=== PATIENT | female | born 1985 | race African-American/Black ===

== ENCOUNTER 2018-12-31 12:14 | Emergency (ER) | payer OTHER ==
[~2018-12-31] VITALS: Ht 167.6 cm; Wt 86.2 kg
--- OUTSIDE RECORDS SUMMARY | 2018-12-31 12:19 | XMS REPORT | Clinical Summary ---
Author Author [facility] Address Unknown Phone Unavailable Care Team Providers Care Manager Field Sales Name Role Phone Sharpless PCP Allergies Comments Active Allergy Reactions Severity Noted Date Sulfamethoxazole-Trimetho Rash Low 11/30/2017 prim Medications Not on file Active Problems Not on file Social History Date Tobacco Use Types Packs/Day Years Used Current Every Day Smoker Smokeless Tobacco: Never Used Alcohol Use Drinks/Week oz/Week Comments Yes Sex Assigned at Date Recorded Not on file Industry Job Start Date Occupation Not on file Not on file Not on file Travel End Travel History Travel Start No recent travel history available. Last Filed Vital Signs Not on file Plan of Treatment Not on file Results Not on fileafter 12/30/2017 Insurance Payer Benefit Subscriber ID Type Phone Address Plan / Group MEDICARE MEDICARE A xxxxxxxxxx Medicare B MEDICAID - MEDICAID MGD [facility] xxxxxxxxx Medicaid CARE [facility] [employer] Contracted PLAN (Home) [place] [address]
--- OUTSIDE RECORDS SUMMARY | 2018-12-31 12:19 | XMS REPORT | Clinical Summary ---
Author Author [facility] Address Unknown Phone Unavailable Care Team Providers Care Nailhead Operator Name Role Phone Asked, No Pcp PCP Unavailable Allergies Comments Active Allergy Reactions Severity Noted Date Sulfamethoxazole-Trimetho 03/23/2016 prim Medications End Date Status Medication Sig Dispensed Refills Start Date Active abacavir-lamivudine Take 1 tablet 0 (EPZICOM) 600-300 mg per by mouth tablet daily. Active atazanavir-cobicistat Take by mouth 0 (EVOTAZ) 300-150 mg daily. tablet Active medroxyPROGESTERone Inject 150 mg 0 (DEPO-PROVERA) 150 mg/mL into the injection shoulder, thigh, or buttocks every 3 (three) months. Active Problems Problem Noted Date Pain in upper limb, Left 03/24/2016 Close fracture proximal humerus, greater tuberosity, Left 03/24/2016 Closed fracture of shaft of humerus, Left 03/24/2016 Nondisplaced fracture of greater tuberosity of left humerus with routine 03/23/2016 healing Family History Medical History Relation Name Comments No Known Problems Father Cancer Mother Relation Name Status Comments Father Mother Social History Date Tobacco Use Types Packs/Day Years Used Current Every Day Smoker Smokeless Tobacco: Current User Sex Assigned at Date Recorded Not on file Industry Job Start Date Occupation Not on file Not on file Not on file Travel End Travel History Travel Start No recent travel history available. Last Filed Vital Signs Not on file Plan of Treatment Health Maintenance Due Date Last Done Comments CERVICAL CANCER SCREENING 2005 INFLUENZA VACCINE 04/05/2019 Results Not on fileafter 12/30/2017 Insurance Payer Benefit Subscriber ID Type Phone Address Plan / Group MEDICARE MEDICARE xxxxxxxxxx Medicare [place], [place] PART A [place] B MEDICAID MEDICAID xxxxxxxxx Medicaid Advance Directives Patient has advance care planning documents on file. For more information, kaveh e contact: Loco Mcguire [address] [place] [address]
--- OUTSIDE RECORDS SUMMARY | 2018-12-31 12:19 | XMS REPORT ---
Author Author [facility] Address Unknown Phone Unavailable Care Team Providers Care Nurse Case Manager Name Role Phone LANDON C[place] Unavailable Unavailable Problems This patient has no known problems. Allergies, Adverse Reactions, Alerts This patient has no known allergies or adverse reactions. Medications This patient has no known medications. Results Test Description Test Time Test Comments Text Results Atomic Results Result Comments URINALYSIS W/ MICROSCOPIC 2017-11-30 10:18:00 COLOR (BEAKER) (test hnfk=214) Yellow CLARITY (BEAKER) (test xskc=815) Slightly Cloudy SPECIFIC GRAVITY UA (BEAKER) (test hwjq=690) 1.020 1.001-1.035 PH UA (BEAKER) (test pmcg=909) 5.5 5.0-8.0 PROTEIN UA (BEAKER) (test ucbm=058) Negative Negative GLUCOSE UA (BEAKER) (test jqkl=755) Negative Negative KETONES UA (BEAKER) (test rklo=847) Negative Negative BILIRUBIN UA (BEAKER) (test juma=730) Negative Negative BLOOD UA (BEAKER) (test rjkw=262) Moderate Negative NITRITE UA (BEAKER) (test tahn=539) Negative Negative LEUKOCYTE ESTERASE UA (BEAKER) (test remc=063) Trace Negative UROBILINOGEN UA (BEAKER) (test rxtk=153) 0.2 mg/dL 0.2-1.0 BACTERIA (BEAKER) (test fapq=800) Moderate MUCUS (BEAKER) (test zjse=1934) Moderate RBC UA-MANUAL (BEAKER) (test rtfk=6183) 10-20 /HPF WBC UA-MANUAL (BEAKER) (test flnq=2555) <5 /HPF SQUAMOUS EPITHELIAL MANUAL (BEAKER) (test snpy=0423) 5-10 /HPF SOURCE(BEAKER) (test fdfe=4304) SCREEN, [id number] 10:08:00* Test Item Value Reference Range Comments TEST URINE (BEAKER) (test cpxf=953) Negative
[2018-12-31] MEDS ORDERED: TETANUS/DIPHTHERIA TOX ADULT 0.5 ML SYR IM STA (12:44)
[2018-12-31] MEDS ORDERED: BACITRACIN ZINC 0.9GM TP ONE (13:00)
--- NOTE | 2018-12-31 13:09 | Diagnostic Imaging Report ---
Exam: Right Hand Series. History: Fingers hurt Comparison: None. Findings: 3 views of the right hand. There is normal bone mineralization. Acute, nondisplaced intra-articular fracture at the base of the fifth finger distal phalanx. Other bony structures are intact. The joint spaces are normal. No abnormal soft tissue calcification or mass. No cystic erosive changes.Mild soft tissue swelling in the fifth finger. Impression: 1. Acute, nondisplaced intra-articular fracture at the base of the fifth finger distal phalanx. Signed by: Dr. Domo Hubbard M.D. on 12/31/2018 1:06 PM
[2018-12-31] MEDS ORDERED: IBUPROFEN 400 MG TAB PO ONE (13:30)
== END 2018-12-31 13:42 | disposition home or self-care (01) ==
LOC: FSED 12:14
DX: S62.356A Nondisplaced fracture of shaft of fifth metacarpal bone, right hand, initial encounter for closed fracture (principal); S62.666A Nondisplaced fracture of distal phalanx of right little finger, initial encounter for closed fracture; S62.656A Nondisplaced fracture of middle phalanx of right little finger, initial encounter for closed fracture; S01.412A Laceration without foreign body of left cheek and temporomandibular area, initial encounter; Y04.0XXA Assault by unarmed brawl or fight, initial encounter; B20 Human immunodeficiency virus [HIV] disease
CPT/HCPCS: 90714; 99284

== ENCOUNTER 2020-07-15 19:42 | Emergency (ER) | payer MEDICARE, OTHER ==
[~2020-07-15] VITALS: Ht 172.7 cm; Wt 72.6 kg
[2020-07-15] MEDS ORDERED: CEFDINIR300 MG PO (22:04)
[2020-07-15] MEDS ORDERED: PROAIR HFA INH8.5 GM INH (22:06)
[2020-07-15 22:20] VITALS: BP 115/73
== END 2020-07-15 22:22 | disposition home or self-care (01) ==
LOC: FSED 19:51
DX: J20.9 Acute bronchitis, unspecified (principal); N39.0 Urinary tract infection, site not specified; R05 Cough; D72.829 Elevated white blood cell count, unspecified; B20 Human immunodeficiency virus [HIV] disease; F17.210 Nicotine dependence, cigarettes, uncomplicated
CPT/HCPCS: 71046; 80053; 81003; 85025; 87400; 99284

== ENCOUNTER 2020-09-09 18:36 | Emergency (ER) | payer MEDICARE, OTHER ==
[~2020-09-09 18:36] MED LIST: CEFDINIR300 MG PO; PROAIR HFA INH8.5 GM INH
== END 2020-09-09 19:00 | disposition short-term general hospital (02) ==
LOC: FSED 19:00
DX: R69 Illness, unspecified (principal)

== ENCOUNTER 2020-10-30 21:27 | Emergency (ER) | payer MEDICARE, OTHER ==
[~2020-10-30] VITALS: Ht 170.2 cm; Wt 68.0 kg
[2020-10-30] MEDS ORDERED: CLINDAMYCIN PHOS 600 MG/ 4 ML VIAL IM STA (22:03)
[2020-10-30] MEDS ORDERED: BUPIVACAINE HCL 0.5% INJ 30 ML VIAL INJ ONE (22:15)
[2020-10-30] MEDS ORDERED: PREDNISONE 20 MG TAB PO ONE (22:15)
[2020-10-30] MEDS ORDERED: LIDOCAINE HCL 2% LOCAL 20 ML VIAL ONE (22:21)
[2020-10-30] MEDS ORDERED: PREDNISONE 20 MG TAB ONE (22:22)
[2020-10-30] MEDS ORDERED: CLINDAMYCIN PHOS 600 MG/ 4 ML VIAL ONE (22:22)
[2020-10-30] MEDS ORDERED: LIDOCAINE HCL 1% LOCAL INJ 20 ML VIAL INJ ONE (22:30)
[2020-10-30] MEDS ORDERED: CLINDAMYCIN HC300 MG PO (23:10)
[2020-10-30] MEDS ORDERED: IBUPROFEN600 MG PO (23:10)
[2020-10-30] MEDS ORDERED: DOXYCYCLINE HY100 M3 PO (23:10)
[2020-10-30] MEDS ORDERED: BACITRACIN ZINC 15 GM OINT TOP STA (23:22)
[2020-10-30 23:30] VITALS: BP 116/70
== END 2020-10-30 23:30 | disposition home or self-care (01) ==
LOC: FSED 22:00
DX: L03.011 Cellulitis of right finger (principal); M79.644 Pain in right finger(s); B20 Human immunodeficiency virus [HIV] disease; F17.210 Nicotine dependence, cigarettes, uncomplicated
CPT/HCPCS: 10060; 73140; 99283; J2001; J7512

== ENCOUNTER 2022-05-10 20:03 | Emergency (ER) | payer MEDICARE ==
[~2022-05-10] VITALS: Ht 170.2 cm; Wt 68.0 kg
[~2022-05-10 20:03] MED LIST changes: +CLINDAMYCIN HC300 MG PO; +DOXYCYCLINE HY100 M3 PO; +IBUPROFEN600 MG PO
[2022-05-10] MEDS ORDERED: CEFTRIAXONE 1 GM VIAL IM ONE (20:30)
[2022-05-10] MEDS ORDERED: IBUPROFEN 200 MG TAB PO ONE (20:30)
[2022-05-10] MEDS ORDERED: CEFDINIR300 MG PO (20:34)
[2022-05-10] MEDS ORDERED: IBUPROFEN200 MG PO (20:34)
[2022-05-10] MEDS ORDERED: IBUPROFEN 600 MG TAB ONE (20:43)
[2022-05-10] MEDS ORDERED: CEFTRIAXONE 1 GM VIAL ONE (20:43)
[2022-05-10] MEDS ORDERED: LIDOCAINE HCL 1% LOCAL INJ 20 ML VIAL ONE (20:44)
== END 2022-05-10 20:50 | disposition home or self-care (01) ==
LOC: FSED 20:10
DX: R30.0 Dysuria (principal); N39.0 Urinary tract infection, site not specified; B20 Human immunodeficiency virus [HIV] disease
CPT/HCPCS: 81003; 81025; 99283; J0696; J2001